=== PATIENT | male | born 1980 | race Caucasian/White ===

== ENCOUNTER 2017-08-31 10:52 | Outpatient (CLI) | payer SELFPAY ==
[~2017-08-31] VITALS: Ht 166.4 cm; Wt 92.7 kg
[2017-08-31 10:57] VITALS: BP 136/73; PULSE 77; RESP 18; Ht 166.4 cm; Wt 92.7 kg
--- NOTE | 2017-08-31 11:25 | PN ---
Date/Time of Note Date/Time of Note DATE: 08/31/17 TIME: 11:16 Assessment/Plan Assessment/Plan Assessment/Plan [facility] Progress Note Date of Service: 08/31/17 Today's Impression & Plan: Overall stable and doing well. Abdomen remains benign. Patient okay to discharge from my care. Explained to patient and answered all questions. Patient appeared to understand and agreed with plans. - f/u with pcp - f/u with us prn - permanent lifestyle change toward more healthy living with goal of decreasing BMI to below 24 Thank you very much for allowing us to participate in the care of this very nice patient and wonderful family. If there are any questions, please feel free to contact me at . Please note: Spelling or grammatical errors in this note are likely due to EHR/ dictation systems and are not reflective of patient care quality. Also please note that the dictation timestamp of this note does not necessarily reflected time of the visit for this service. Updated Clinical Summary: A very pleasant 37-year-old gentleman with comorbidity of BMI 38.7 admitted through the emergency department to [facility] on 2016 with signs and symptoms consistent with acute retrocecal appendicitis with elevated white blood cell count as well as a CT scan that was consistent with above diagnosis. Status post laparoscopic appendectomy at [facility] 08/06/2017 for acute retrocecal appendicitis. Comorbidities: 1. Acute appendicitis, retrocecal. Status post laparoscopic appendectomy at [facility] 08/06/2017 for acute retrocecal appendicitis. 2. BMI 38.7 3. Possible urinary tract infection [facility] 2016 (but could also be reactive due to appendicitis) Subjective: No major events or complaints since d/c home. No major pain complaints and reportedly under control with medications. No N/V, SOB or CP. + bowel activity Objective: Vitals: reviewed; please also see EHR Physical Exam: Lungs: breathing comfortably without tachypnea; no audible wheezes, rales or rhonchi on gross exam Abd: Soft, non-tender, and non-distended; no peritoneal signs or guarding. Incisions clean, dry, and intact without any obvious evidence of erythema, edema , discharge, or hernia. Skin: Appears pink and feels warm to touch. Neuro: Awake, alert and follows commands appropriately Exam/Review of Systems Vital Signs Vitals Vital Signs Date Time Temp Pulse Resp B/P Pulse Ox O2 Delivery O2 Flow Rate FiO2 08/31/17 10:57 98.1 77 18 136/73 96 Room Air MARC GAMBOA M.D. Aug 31, 2017 11:25
== END 2017-08-31 16:37 | disposition home or self-care (01) ==
LOC: HPC 10:52
PROVIDERS: ATTEND Transplant Surgery
DX: K37 Unspecified appendicitis (principal)
CPT/HCPCS: G0463